=== PATIENT | male | born 1940 | race Caucasian/White ===

== ENCOUNTER → 2018-08-19 | Outpatient (CLI) | payer MEDICARE, BC ==
[~2018-08-19] MED LIST: IOPAMIDOL 370 MG/ML 200 ML INFUS..BTL INJ ONE; SODIUM CHLORIDE 0.9% 500ML 500 ML ONE; SODIUM CHLORIDE 0.9% 50ML 50 ML ONE
[2018-08-19 10:08] LABS: CREATININE, SERUM 1.24 mg/dL (0.72-1.25)
--- NOTE | 2018-08-19 12:53 | Diagnostic Imaging Report ---
EXAM: CT Pelvis WITH contrast INDICATION: Elevated PSA, difficulty urinating. COMPARISON: None. TECHNIQUE: Pelvis were scanned utilizing a multidetector helical scanner from the iliac crest to the pubic symphysis after administration of IV contrast. Coronal and sagittal reformations were obtained. Routine protocol was performed. IV CONTRAST: 100 cc of Isovue 370 ORAL CONTRAST: Water RADIATION DOSE: Total DLP: 370.7 mGy*cm COMPLICATIONS: None FINDINGS: LINES and TUBES: None. GI TRACT: Partially visualized. No abnormal distention, wall thickening, or evidence of bowel obstruction. KIDNEYS/URETERS: Partially visualized inferior poles. There is a left lower pole renal cyst. The inferior ureters bilaterally appear unremarkable. PELVIC ORGANS/BLADDER: The bladder is unremarkable in appearance. Prostatomegaly, measuring up to 5 cm. LYMPH NODES: No pelvic lymphadenopathy. VESSELS: Moderate atherosclerotic calcifications. PERITONEUM / RETROPERITONEUM: No free air or fluid. BONES/SOFT TISSUES: No evidence of suspicious bony lesion. IMPRESSION: No acute CT abnormality. Prostatomegaly. Signed by: Dr. David Stockton MD on 08/19/2018 12:49 PM
--- NOTE | 2018-08-21 18:58 | Diagnostic Imaging Report ---
Bone Scan, delayed phase INDICATION: 77 M with elevated PSA; no history of cancer COMPARISON: CT pelvis 08/19/2018 REPORT: Approximately 3 hours following intravenous administration of 27.5 mCi of Tc-99m MDP, delayed total body images in the anterior and posterior projections and selected spot images were obtained. Foci of mild to markedly increased tracer activity are seen in the mid thoracic spine on the right, lower lumbar spine on the right, right shoulder, bilateral knees and mid feet. Otherwise, distribution of tracer activity is unremarkable throughout the skeletal system. No abnormal accumulation of tracer is seen in the soft tissues or urinary tract. IMPRESSION: No scan pattern of metastatic bone disease. Degenerative changes are seen in the thoracolumbar spine, right shoulder, knees and feet. Signed by: Dr. Chaya Lamb M.D. on 08/21/2018 6:54 PM
== END ==
LOC: NM 08:20
PROVIDERS: ATTEND Urology
DX: R97.20 Elevated prostate specific antigen [PSA] (principal)
CPT/HCPCS: 36415; 72193; 78306; 82565; 84520; 96360; A9503; J7040; Q9967

== ENCOUNTER → 2019-12-13 | Outpatient (CLI) | payer MEDICARE, BC ==
[2019-12-13 11:36] LABS: CREATININE, SERUM 1.38 mg/dL (0.72-1.25)
--- NOTE | 2019-12-13 14:32 | Diagnostic Imaging Report ---
EXAM: CT Pelvis WITH contrast INDICATION: Elevated PSA COMPARISON: Pelvis CT 08/19/2018 TECHNIQUE: Pelvis were scanned utilizing a multidetector helical scanner from the iliac crest to the pubic symphysis after administration of IV contrast. Coronal and sagittal reformations were obtained. Routine protocol was performed. IV CONTRAST: 100 cc of Isovue 370 ORAL CONTRAST: Water RADIATION DOSE: Total DLP: 370.7 mGy*cm COMPLICATIONS: None FINDINGS: LINES and TUBES: None. GI TRACT: Partially visualized. No abnormal distention, wall thickening, or evidence of bowel obstruction. KIDNEYS/URETERS: Partially visualized left lower pole renal cyst. The inferior ureters bilaterally appear unremarkable. PELVIC ORGANS/BLADDER: The bladder is unremarkable in appearance. The prostate is enlarged and measures up to 5.0 x 3.5 x 4.9 cm (volume estimate of 45cc). LYMPH NODES: No pelvic lymphadenopathy. VESSELS: Moderate atherosclerotic calcifications. PERITONEUM / RETROPERITONEUM: No free air or fluid. BONES/SOFT TISSUES: No evidence of suspicious bony lesion. IMPRESSION: No acute CT abnormality. Prostatomegaly. Signed by: Dolores Franco MD on 12/13/2019 2:29 PM
--- NOTE | 2019-12-13 19:18 | Diagnostic Imaging Report ---
Bone Scan, delayed phase INDICATION: Elevated PSA COMPARISON: Prior bone scan 08/19/2018 REPORT: Approximately 3 hours following intravenous administration of 25 mCi of Tc-99m MDP, delayed total body images in the anterior and posterior projections and selected spot images were obtained. Degenerative changes are again seen in the thoracolumbar spine, right shoulder, bilateral knees and feet. Otherwise, distribution of tracer activity is unremarkable throughout the skeletal system. No abnormal accumulation of tracer is seen in the soft tissues or urinary tract. IMPRESSION: No scan pattern of metastatic bone disease. No interval change compared to prior bone scan of 08/19/2018. Signed by: Dr. Chaya Lamb M.D. on 12/13/2019 7:14 PM
== END ==
LOC: NM 10:33
PROVIDERS: ATTEND Urology
DX: R97.20 Elevated prostate specific antigen [PSA] (principal)
CPT/HCPCS: 36415; 72193; 78306; 82565; 84520; 96360; A9503; A9570; J7040; Q9967

== ENCOUNTER → 2021-05-12 | Outpatient (CLI) | payer MEDICARE, BC ==
[~2021-05-12] MED LIST changes: +SODIUM CHLORIDE 0.9% 500ML 0 ML ONE; +SODIUM CHLORIDE 0.9% 50ML 0 ML ONE
[2021-05-12 10:27] LABS: CREATININE, SERUM 1.32 mg/dL (0.72-1.25)
== END ==
LOC: NM 08:39
PROVIDERS: ATTEND Urology
DX: R97.20 Elevated prostate specific antigen [PSA] (principal)
CPT/HCPCS: 36415; 72193; 78306; 82565; 84520; A9503; J7040; Q9967